=== PATIENT | female | born 1945 | race American Indian/Alaskan Native ===

== ENCOUNTER 2016-10-21 07:32 | Emergency (ER) | payer MEDICARE ==
--- NOTE | 2016-10-21 08:03 | Emergency Department Report ---
- General Chief complaint: Medical Clearance Stated complaint: MUSCLE SPASM/ARMS/HANDS/CHEST Time Seen by Provider: 10/21/16 07:51 Source: patient, EMS Mode of arrival: Stretcher Limitations: Other - History of Present Illness Initial comments: muscle spasm in legs and arms MD Complaint: generalized weakness, focal weakness, numbness -: Gradual Location: generalized Severity: mild Quality: tingling, numbness Consistency: constant Improves with: none Worsens with: none Context: other (stop taking K supplements) Associated Symptoms: denies: chest pain, confusion, dark stools, diaphoresis, easy bruising, fever/chills, headaches - Related Data Home Medications Medication Instructions Recorded Confirmed Last Taken Aspirin [Aspirin TAB] 325 mg PO DAILY 06/09/14 10/21/16 10/20/16 Atorvastatin [Lipitor] 20 mg PO QHS 06/09/14 10/21/16 10/20/16 Sertraline [Zoloft] 100 mg PO QHS 06/09/14 10/21/16 10/20/16 Previous Rx's Medication Instructions Recorded Last Taken Type HYDROcodone/APAP 5-325 [[place] 2 each PO Q6H PRN #20 tablet 10/21/16 Unknown Rx 5-325 mg TAB] Allergies Allergy/AdvReac Type Severity Reaction Status Date / Time No Known Allergies Allergy Unverified 06/09/14 19:50 ED Review of Systems ROS: Stated complaint: MUSCLE SPASM/ARMS/HANDS/CHEST Other details as noted in HPI Constitutional: denies: chills, fever Eyes: denies: eye pain, eye discharge, vision change ENT: denies: ear pain, throat pain Respiratory: denies: cough, shortness of breath, wheezing Cardiovascular: denies: chest pain, palpitations Endocrine: no symptoms reported Gastrointestinal: denies: abdominal pain, nausea, diarrhea Genitourinary: denies: urgency, dysuria, discharge Musculoskeletal: denies: back pain, joint swelling, arthralgia Skin: denies: rash, lesions Neurological: denies: headache, weakness, paresthesias Psychiatric: denies: anxiety, depression Hematological/Lymphatic: denies: easy bleeding, easy bruising ED Past Medical Hx - Past Medical History Previous Medical History?: Yes Hx Hypertension: Yes Hx CVA: Yes Hx Heart Attack/AMI: No Hx Congestive Heart Failure: No Hx Deep Vein Thrombosis: No Hx Pulmonary Embolism: No Hx GERD: Yes Hx Sickle Cell Disease: No Hx Seizures: No Hx Psychiatric Treatment: Yes (anxiety) Hx Asthma: No Hx COPD: No Hx Tuberculosis: No Hx Dementia: No Hx HIV: No Additional medical history: high cholesterol - Surgical History Hx Coronary Stent: No Hx Pacemaker: No Hx Internal Defibrillator: No Hx Cholecystectomy: Yes Hx Appendectomy: Yes - Social History Smoking Status: Never Smoker Substance Use Type: None - Medications Home Medications: Home Medications Medication Instructions Recorded Confirmed Last Taken Type Aspirin [Aspirin TAB] 325 mg PO DAILY 06/09/14 10/21/16 10/20/16 History Atorvastatin [Lipitor] 20 mg PO QHS 06/09/14 10/21/16 10/20/16 History Sertraline [Zoloft] 100 mg PO QHS 06/09/14 10/21/16 10/20/16 History HYDROcodone/APAP 5-325 [[place] 2 each PO Q6H PRN #20 tablet 10/21/16 Unknown Rx 5-325 mg TAB] ED Physical Exam - General Limitations: Other General appearance: alert, in no apparent distress - Head Head exam: Present: atraumatic, normocephalic - Eye Eye exam: Present: normal appearance - ENT ENT exam: Present: mucous membranes moist - Neck Neck exam: Present: normal inspection - Respiratory Respiratory exam: Present: normal lung sounds bilaterally. Absent: respiratory distress - Cardiovascular Cardiovascular Exam: Present: regular rate, normal rhythm. Absent: systolic murmur, diastolic murmur, rubs, gallop - GI/Abdominal GI/Abdominal exam: Present: soft, normal bowel sounds - Extremities Exam Extremities exam: Present: normal inspection, full ROM, normal capillary refill - Back Exam Back exam: Present: normal inspection - Neurological Exam Neurological exam: Present: alert, oriented X3, CN II-XII intact, normal gait, motor sensory deficit, reflexes normal - Psychiatric Psychiatric exam: Present: normal affect, normal mood - Skin Skin exam: Present: warm, dry, intact, normal color. Absent: rash ED Course Vital Signs 10/21/16 10/21/16 07:43 08:08 Temperature 97.5 F L Pulse Rate 73 Respiratory 18 Rate Blood Pressure 139/76 O2 Sat by Pulse 94 99 Oximetry ED Medical Decision Making - Lab Data Result diagrams: 10/21/16 08:40 10/21/16 08:40 - EKG Data Rate: normal - EKG Data When compared to previous EKG there are: no significant change - Medical Decision Making patient doing well here in the er, symptoms better and she wishes to go home, labs negative , no hypokalemia , tolerating po here , waiting on fluids and 2mg of morphine to finish to let her go home , and daughter by her bedside. Critical care attestation.: If time is entered above; I have spent that time in minutes in the direct care of this critically ill patient, excluding procedure time. ED Disposition Clinical Impression: Muscle spasm Disposition: DISCHARGED TO HOME OR SELFCARE Is pt being admited?: No Does the pt Need Aspirin: No Condition: Good Instructions: Muscle Spasm (ED) Prescriptions: HYDROcodone/APAP 5-325 [[place] 5-325 mg TAB] 2 each PO Q6H PRN #20 tablet PRN Reason: Moderate Pain Referrals: PRIMARY CARE, [Primary Care Provider] - 3-5 Days Time of Disposition: 10:27
[2016-10-21 08:57] LABS: Basophils % (Auto) 1.1 % (0.0-1.8); Eosinophils % (Auto) 7.2 % (0.0-4.3); Hematocrit 38.6 % (30.3-42.9); Hemoglobin 12.7 gm/dl (10.1-14.3); Mean Corpuscular HGB Conc 33 % (30-34); Mean Corpuscular Hemoglobin 31 pg (28-32); Mean Corpuscular Volume 94 fl (79-97); Platelet Count 291 K/mm3 (140-440); Red Blood Count 4.12 M/mm3 (3.65-5.03); Red Cell Distribution Width 13.8 % (13.2-15.2); White Blood Count 6.1 K/mm3 (4.5-11.0)
[2016-10-21 09:06] LABS: Alanine Aminotransferase 8 units/L (7-56); Albumin 3.7 g/dL (3.9-5); Albumin/Globulin Ratio 1.4 %; Alkaline Phosphatase 92 units/L (35-129); Anion Gap 18 mmol/L; Bilirubin,Total < 0.20 mg/dL (0.1-1.2); Blood Urea Nitrogen 13 mg/dL (7-17); Calcium 9.5 mg/dL (8.4-10.2); Carbon Dioxide 23 mmol/L (22-30); Chloride 107.2 mmol/L (98-107); Glucose 104 mg/dL (65-100); Potassium 4.7 mmol/L (3.6-5.0); Sodium 143 mmol/L (137-145); Total Protein 6.3 g/dL (6.3-8.2)
[2016-10-21] MEDS ORDERED: NACL 0.9% 1000 ML 1,000 ML IV ONE (09:58)
[2016-10-21] MEDS ORDERED: ZOFRAN IV ONE (09:58)
[2016-10-21] MEDS ORDERED: MORPHINE IV ONE (10:00)
[2016-10-21 11:23] VITALS: BP 137/80
== END 2016-10-21 11:33 | disposition home or self-care (01) ==
LOC: ED 07:32
DX: M62.838 Other muscle spasm (principal); I10 Essential (primary) hypertension; K21.9 Gastro-esophageal reflux disease without esophagitis; F41.9 Anxiety disorder, unspecified; E78.00 Pure hypercholesterolemia, unspecified; Z90.49 Acquired absence of other specified parts of digestive tract; Z86.73 Personal history of transient ischemic attack (TIA), and cerebral infarction without residual deficits; Z79.82 Long term (current) use of aspirin
CPT/HCPCS: 36415; 80053; 85025; 93005; 93010; 96361; 96374; 96375; 99283; J2270; J2405; J7030

== ENCOUNTER 2017-03-21 07:13 | Outpatient (CLI) | payer MEDICARE ==
--- NOTE | 2017-03-21 09:47 | Mammography Report ---
Bilateral mammogram: Compared to 02/16/15. CAD study utilized. Findings: Predominance adipose tissue bilaterally. No mass or microcalcification. Benign axillary nodes. Impression: Benign findings. Annual followup recommended. BI-RADS CATEGORY: 2 = Benign ACR BI-RADS MAMMOGRAPHIC CODES: 0 = Needs additional imaging evaluation; 1 = Negative; 2 = Benign; 3 = Probably benign; 4 = Suspicious; 5 = Malignant; 6 = Known biopsy-proven malignancy COMMENT: 1. Dense breast tissue, i.e., adenosis, fibrocystic changes, etc., may obscure an underlying neoplasm. 2. Approximately 10% of cancers are not detected with mammography. 3. A negative mammography report should not delay biopsy if a clinically suspicious mass is present. COMMENT: Patient follow-up letters are generated in [facility].
== END 2017-03-21 07:14 | disposition home or self-care (01) ==
LOC: MAMMO 07:13
DX: Z12.31 Encounter for screening mammogram for malignant neoplasm of breast (principal)
CPT/HCPCS: 77067; G0202

== ENCOUNTER 2017-05-06 14:43 | Emergency (ER) | payer MEDICARE ==
--- NOTE | 2017-05-06 15:16 | Emergency Department Report ---
Chief Complaint: Nausea/Vomiting/Diarrhea Stated Complaint: NV Time Seen by Provider: 05/06/17 15:16 - HPI History of Present Illness: Patient is a 71-year-old female who presents to ED complaining of generalized abdominal pain 2 months. Patient states symptoms have worsened the past 3 weeks. Patient states she has vomited then that's worsened every time she eats food or drinks fluids. Patient states about 4 episodes of diarrhea per day. Patient states she is followed by primary care doctor wants to get an EGD done on the . She denies fevers/chills/chest pain/shortness of breath/dizziness or headache. - ROS Review of Systems: As noted in HPI - Exam Vital Signs: Vital Signs 05/06/17 14:57 Temperature 97.7 F Pulse Rate 84 Respiratory 16 Rate Blood Pressure 125/81 O2 Sat by Pulse 96 Oximetry Physical Exam: GENERAL: Alert and oriented x3, no apparent distress, Normal Gait, atraumatic. ABDOMEN: No organomegaly was noted,Positive bowel sounds, soft, and non- distended. . Nontender to palpation on all Quadrants, NO CVA tenderness. BACK: Full range of motion, no spinal tenderness, nontender to palpation. MSE screening note: Focused history and physical exam performed. Due to findings the following was ordered: ED Medical Decision Making - Medical Decision Making 71-year-old female with no acute distress Abdominal pain protocol ordered. Patient was seen by ED physician ED Disposition for MSE Condition: Stable
[2017-05-06 16:28] LABS: Hematocrit 38.4 % (30.3-42.9); Hemoglobin 12.8 gm/dl (10.1-14.3); Mean Corpuscular HGB Conc 33 % (30-34); Mean Corpuscular Hemoglobin 31 pg (28-32); Mean Corpuscular Volume 93 fl (79-97); Platelet Count 318 K/mm3 (140-440); Red Blood Count 4.12 M/mm3 (3.65-5.03); Red Cell Distribution Width 13.6 % (13.2-15.2); White Blood Count 6.8 K/mm3 (4.5-11.0)
[2017-05-06 18:05] VITALS: BP 121/80
[2017-05-06 18:07] LABS: Alanine Aminotransferase 7 units/L (7-56); Albumin/Globulin Ratio 1.7 %; Alkaline Phosphatase 98 units/L (35-129); Anion Gap 21 mmol/L; BUN/Creatinine Ratio 12; Blood Urea Nitrogen 11 mg/dL (7-17); Calcium 8.9 mg/dL (8.4-10.2); Carbon Dioxide 19 mmol/L (22-30); Chloride 101.9 mmol/L (98-107); Glucose 100 mg/dL (65-100); Lipase 18 units/L (13-60); Sodium 138 mmol/L (137-145); Total Protein 6.3 g/dL (6.3-8.2)
[2017-05-06 18:09] LABS: Bilirubin,Urine NEG (Negative); Blood,Urine NEG (Negative); Ketones,Urine NEG (Negative); Leukocyte Esterase,Urine TR (Negative); Nitrite,Urine NEG (Negative); Protein,Urine <15 mg/dL mg/dL (Negative); Urobilinogen,Urine < 2.0 mg/dL (<2.0)
[2017-05-06] MEDS ORDERED: ZOFRAN IV ONE (18:37)
[2017-05-06] MEDS ORDERED: NACL 0.9% 1000 ML 1,000 ML IV ONE (18:37)
[2017-05-06 18:38] LABS: Mucus,Urine 1+ /HPF
--- NOTE | 2017-05-06 18:42 | Emergency Department Report ---
ED Abdominal Pain HPI - General Chief Complaint: Nausea/Vomiting/Diarrhea Stated Complaint: NV Time Seen by Provider: 05/06/17 15:16 Source: patient Mode of arrival: Ambulatory Limitations: No Limitations - History of Present Illness Initial Comments: This is a 71 years old female with 2 month history of epigastric abdominal pain nausea and vomiting. Patient stated that she had multiple ER visits for this issue since started and she had a CT scan of abdomen and pelvis which came back basically normal. She was told that she has gastritis and she has an appointment for EGD then this month. MD Complaint: abdominal pain Location: epigastric Migration to: no migration Severity scale (0 -10): 7 Quality: burning Worsens With: vomiting Associated Symptoms: nausea, vomiting, diarrhea - Related Data Home Medications Medication Instructions Recorded Confirmed Last Taken Atorvastatin [Lipitor] 20 mg PO QHS 06/09/14 05/06/17 10/20/16 HYDROcodone/APAP 10-325 [[place] 1 each PO BID PRN 05/06/17 05/06/17 Unknown 10/325] Omeprazole 40 mg PO DAILY 05/06/17 05/06/17 Unknown Ondansetron [Zofran TAB] 2 mg PO Q8HR PRN 05/06/17 05/06/17 Unknown amLODIPine [Norvasc] 10 mg PO DAILY 05/06/17 05/06/17 Unknown clonazePAM [Klonopin] 0.5 mg PO DAILY PRN 05/06/17 05/06/17 Unknown Allergies Allergy/AdvReac Type Severity Reaction Status Date / Time No Known Allergies Allergy Unverified 06/09/14 19:50 ED Review of Systems ROS: Stated complaint: NV Other details as noted in HPI Comment: All other systems reviewed and negative Constitutional: denies: chills, fever Respiratory: denies: cough, orthopnea, shortness of breath, SOB with exertion Gastrointestinal: abdominal pain, nausea, vomiting, diarrhea. denies: constipation, hematemesis Neurological: denies: headache, weakness, numbness, paresthesias ED Past Medical Hx - Past Medical History Previous Medical History?: Yes Hx Hypertension: Yes Hx CVA: Yes Hx Heart Attack/AMI: No Hx Congestive Heart Failure: No Hx Deep Vein Thrombosis: No Hx Pulmonary Embolism: No Hx GERD: Yes Hx Sickle Cell Disease: No Hx Seizures: No Hx Psychiatric Treatment: Yes (anxiety) Hx Asthma: No Hx COPD: No Hx Tuberculosis: No Hx Dementia: No Hx HIV: No Additional medical history: high cholesterol - Surgical History Past Surgical History?: Yes Hx Coronary Stent: No Hx Pacemaker: No Hx Internal Defibrillator: No Hx Cholecystectomy: Yes Hx Appendectomy: Yes - Social History Smoking Status: Never Smoker Substance Use Type: None - Medications Home Medications: Home Medications Medication Instructions Recorded Confirmed Last Taken Type Atorvastatin [Lipitor] 20 mg PO QHS 06/09/14 05/06/17 10/20/16 History HYDROcodone/APAP 10-325 [[place] 1 each PO BID PRN 05/06/17 05/06/17 Unknown History 10/325] Omeprazole 40 mg PO DAILY 05/06/17 05/06/17 Unknown History Ondansetron [Zofran TAB] 2 mg PO Q8HR PRN 05/06/17 05/06/17 Unknown History amLODIPine [Norvasc] 10 mg PO DAILY 05/06/17 05/06/17 Unknown History clonazePAM [Klonopin] 0.5 mg PO DAILY PRN 05/06/17 05/06/17 Unknown History ED Physical Exam - General Limitations: No Limitations General appearance: alert, in no apparent distress - Head Head exam: Present: atraumatic, normocephalic, normal inspection - Eye Eye exam: Present: normal appearance - ENT ENT exam: Present: normal exam, mucous membranes dry, TM's normal bilaterally, normal external ear exam - Neck Neck exam: Present: normal inspection, full ROM. Absent: tenderness, meningismus, lymphadenopathy - Respiratory Respiratory exam: Present: normal lung sounds bilaterally. Absent: respiratory distress, wheezes, rales, rhonchi, stridor, chest wall tenderness, accessory muscle use, decreased breath sounds, prolonged expiratory - Cardiovascular Cardiovascular Exam: Present: regular rate, normal rhythm, normal heart sounds - GI/Abdominal GI/Abdominal exam: Present: soft, tenderness (epigastric), normal bowel sounds. Absent: distended, guarding, rebound, rigid, organomegaly, mass, bruit, pulsatile mass, hernia - Extremities Exam Extremities exam: Present: normal inspection, full ROM, normal capillary refill - Back Exam Back exam: Present: normal inspection. Absent: tenderness, CVA tenderness (R), CVA tenderness (L) - Neurological Exam Neurological exam: Present: alert, oriented X3, CN II-XII intact, normal gait - Skin Skin exam: Present: warm, dry, intact ED Course Vital Signs 05/06/17 05/06/17 05/06/17 14:57 17:14 17:27 Temperature 97.7 F Pulse Rate 84 81 Respiratory 16 17 11 L Rate Blood Pressure 125/81 O2 Sat by Pulse 96 97 94 Oximetry 05/06/17 05/06/17 05/06/17 17:30 17:40 18:00 Temperature 98.3 F Pulse Rate 72 72 Respiratory 13 18 Rate Blood Pressure 117/81 121/80 O2 Sat by Pulse 93 Oximetry ED Medical Decision Making - Lab Data Result diagrams: 05/06/17 16:06 05/06/17 16:06 Critical care attestation.: If time is entered above; I have spent that time in minutes in the direct care of this critically ill patient, excluding procedure time. ED Disposition Clinical Impression: Abdominal pain, Gastritis, Nausea and vomiting Disposition: DC-01 TO HOME OR SELFCARE Is pt being admited?: No Condition: Stable Instructions: Abdominal Pain (ED), Gastritis (ED) Referrals: PRIMARY CARE, [Primary Care Provider] - 3-5 Days
[2017-05-06] MEDS ORDERED: PROTONIX IV ONE (19:00)
[2017-05-06 19:17] LABS: Anisocytosis 1+; Basophils % (Manual) 0 % (0.0-1.8); Blastocytes % (Manual) 0 %; Diff Status Complete; Large Platelets 1+; Platelet Estimate Consistent w Auto; Poikilocytosis 1+
== END 2017-05-06 19:23 | disposition home or self-care (01) ==
LOC: ED 14:43
DX: K29.70 Gastritis, unspecified, without bleeding (principal); R11.2 Nausea with vomiting, unspecified; R10.13 Epigastric pain; I10 Essential (primary) hypertension; Z86.73 Personal history of transient ischemic attack (TIA), and cerebral infarction without residual deficits; K21.9 Gastro-esophageal reflux disease without esophagitis; F41.9 Anxiety disorder, unspecified; E78.00 Pure hypercholesterolemia, unspecified; Z90.49 Acquired absence of other specified parts of digestive tract
CPT/HCPCS: 36415; 80053; 81001; 83690; 85007; 85025; 96361; 96374; 96375; 99283; C9113; J2405; J7030

== ENCOUNTER 2018-01-19 07:34 | Outpatient (CLI) | payer MEDICARE ==
--- NOTE | 2018-01-19 09:33 | XRay Report ---
LEFT HIP, 2 views: History: Osteoarthritis of left hip. Normal bone mineralization. Mild to moderate osteoarthritic changes are identified in both hips which is relatively symmetric. There is no evidence for fracture, dislocation or osteonecrosis. The pelvis is grossly intact. IMPRESSION: [id number] osteoarthritis.
--- NOTE | 2018-01-19 09:33 | XRay Report ---
LEFT KNEE, 3 views: History: Osteoarthritis of left knee. The bony architecture is intact without evidence of fracture or dislocation. No significant soft tissue abnormality is seen. IMPRESSION: Normal left knee.
--- NOTE | 2018-01-19 09:34 | XRay Report ---
CERVICAL SPINE, 5 views: History: Cervical radiculopathy. Views of the cervical spine demonstrate normal bony alignment, vertebral height and interspace distances. Oblique views show patent foramina and normal apophyseal joint alignment. The prevertebral soft tissues are not thickened. IMPRESSION: Normal study.
--- NOTE | 2018-01-19 09:35 | XRay Report ---
LUMBOSACRAL SPINE, FIVE VIEWS: HISTORY: Lumbar spondylosis. Views of the lumbosacral spine demonstrate normal bony alignment, vertebral height and interspace distances. Oblique views show patent foramina and normal apophyseal joint alignment. Mild osteoarthritic facet arthropathy is identified throughout the lumbar region. IMPRESSION: Mild facet arthropathy throughout the lumbar region.
== END 2018-01-19 07:35 | disposition home or self-care (01) ==
LOC: XRAY 07:34
PROVIDERS: ATTEND Physical Medicine & Rehabilitation Pain Medicine
DX: M46.86 Other specified inflammatory spondylopathies, lumbar region (principal); M16.12 Unilateral primary osteoarthritis, left hip; I10 Essential (primary) hypertension; E78.00 Pure hypercholesterolemia, unspecified; K21.9 Gastro-esophageal reflux disease without esophagitis; F41.9 Anxiety disorder, unspecified; Z90.89 Acquired absence of other organs; Z90.49 Acquired absence of other specified parts of digestive tract; Z86.73 Personal history of transient ischemic attack (TIA), and cerebral infarction without residual deficits
CPT/HCPCS: 72050; 72110